=== PATIENT | male | born 1970 | race Caucasian/White ===

== ENCOUNTER → 2020-08-03 | Outpatient (CLI) | payer OTHER ==
[~2020-08-03] MED LIST: GABA300C18 PO; IBUP-1027 PO
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
== END ==
LOC: KCIC 11:03
PROVIDERS: ATTEND Physician Assistant Medical
DX: M19.032 Primary osteoarthritis, left wrist (principal); M19.042 Primary osteoarthritis, left hand
CPT/HCPCS: 73110; 73130